=== PATIENT | male | born 1945 | race Caucasian/White ===

== ENCOUNTER 2016-12-01 13:36 | Outpatient (CLI) | payer MEDICARE ==
[2016-12-01 14:03] LABS: #Eosinphils 0.1 thou/uL (0.0-0.7); #Lymphocytes 1.5 thou/uL (1.20-3.40); #Monocytes 0.5 thou/uL (0.11-0.59); #Neutrophils 4.4 thou/uL (1.40-6.50); %Basophils 0.5 % (0.0-1.0); %Eosinophils 0.8 % (0.0-10.0); %Lymphocytes 22.9 % (21.0-51.0); %Monocytes 7.3 % (0.0-10.0); Hematocrit 45.4 % (42.0-52.0); Mean Platelet Volume 9.2 fL (7.4-10.4); Red Blood Cell (RBC) Count 4.94 mill/uL (4.70-6.10); White Blood Cell (WBC) Count 6.5 thou/uL (4.8-10.8)
[2016-12-01 14:17] LABS: Hemoglobin A1c 6.7 % (4.0-6.0)
[2016-12-01 14:19] LABS: ALT (SGPT) 16 U/L (0-55); AST (SGOT) 19 U/L (5-34); Alkaline Phosphatase 65 U/L (40-150); Anion Gap 16 mmol/L (10-20); BUN (Urea Nitrogen) 26 mg/dL (8.4-25.7); Bilirubin, Direct 0.3 mg/dL (0.1-0.3); Bilirubin, Total 0.9 mg/dL (0.2-1.2); Calc. Creatinine Clearance 0 mL/min (70-130); Calcium 9.4 mg/dL (7.8-10.44); Carbon Dioxide 22 mmol/L (23-31); Chloride 104 mmol/L (98-107); Estimated GFR-MDRD 48; LDL Cholesterol, Calculated 98 mg/dL; Protein, Total 7.1 g/dL (5.8-8.1)
== END 2016-12-01 13:37 | disposition home or self-care (01) ==
LOC: NAVSJIPCSP 13:36
PROVIDERS: ATTEND Family Medicine
DX: I10 Essential (primary) hypertension (principal)
CPT/HCPCS: 80048; 80061; 80076; 83036; 84443; 85025

== ENCOUNTER 2017-07-17 11:03 | Emergency (ER) | payer MEDICARE ==
[2017-07-17 11:41] LABS: #Basophils 0.1 thou/uL (0.0-0.2); #Eosinphils 0.1 thou/uL (0.0-0.7); #Lymphocytes 2.1 thou/uL (1.20-3.40); #Monocytes 0.9 thou/uL (0.11-0.59); #Neutrophils 6.4 thou/uL (1.40-6.50); %Basophils 0.5 % (0.0-1.0); %Eosinophils 0.6 % (0.0-10.0); %Lymphocytes 21.7 % (21.0-51.0); %Monocytes 9.6 % (0.0-10.0); %Neutrophils 67.5 % (42.0-75.0); Hemoglobin 16.6 g/dL (14.0-18.0); Mean Corpuscular HGB CONC 33.4 g/dL (32.0-36.0); Mean Corpuscular Hemoglobin 31.7 pg (27.0-31.0); Mean Corpuscular Volume 95.1 fl (80.0-94.0); Mean Platelet Volume 9.9 fL (7.4-10.4); Platelet Count 198 thou/uL (130-400); RBC Distribution Width 12.8 % (11.5-14.5); Red Blood Cell (RBC) Count 5.22 mill/uL (4.70-6.10); White Blood Cell (WBC) Count 9.5 thou/uL (4.8-10.8)
[2017-07-17 11:47] LABS: Bilirubin Negative (Negative); Blood, Urine Trace (Negative); Clarity Clear (Clear); Glucose, Urine (Dipstick) Negative (Negative); Leukocyte Negative (Negative); Nitrite Negative (Negative); Protein, Urine (Dipstick) Negative (Neg-Trace); Specific Gravity, Urine 1.015 (1.005-1.030); Urobilinogen 0.2 mg/dL (0.2-1.0); pH, Urine 6.5 (5.0-9.0)
[2017-07-17 11:54] LABS: ALT (SGPT) 13 U/L (8-55); AST (SGOT) 12 U/L (5-34); Albumin 4.6 g/dL (3.4-4.8); Alkaline Phosphatase 82 U/L (40-150); Anion Gap 15 mmol/L (10-20); BUN (Urea Nitrogen) 18 mg/dL (8.4-25.7); Calc. Creatinine Clearance 0 mL/min (70-130); Calcium 9.9 mg/dL (7.8-10.44); Carbon Dioxide 26 mmol/L (23-31); Chloride 100 mmol/L (98-107); Estimated GFR-MDRD 52; Globulin 3.2 g/dL (2.4-3.5); Glucose 123 mg/dL (83-110); Potassium 3.9 mmol/L (3.5-5.1); Protein, Total 7.8 g/dL (5.8-8.1); Sodium 137 mmol/L (136-145)
[2017-07-17 11:55] LABS: RBC/HPF 0-3 HPF (0-3); Squamous Epithelial 0-3 HPF (0-3); WBC/HPF 0-3 HPF (0-3)
--- NOTE | 2017-07-17 14:19 | RAD ---
2 VIEWS CHEST: Date: 07/17/17 COMPARISON: None. HISTORY: Right-sided pain, chest pain, back pain. FINDINGS: No pneumothorax, pleural fluid, focal consolidation, or alveolar edema. Cardiac silhouette is promin ent on the lateral view. There is multilevel mid thoracic spine degenerative change. IMPRESSION: No focal consolidation or alveolar edema. POS: [facility]
== END 2017-07-17 12:53 | disposition home or self-care (01) ==
LOC: NAV ERS 11:03
DX: R07.1 Chest pain on breathing (principal); I48.91 Unspecified atrial fibrillation; I10 Essential (primary) hypertension; Z79.82 Long term (current) use of aspirin; Z79.899 Other long term (current) drug therapy
CPT/HCPCS: 71020; 80053; 81003; 81015; 85025

== ENCOUNTER 2017-10-01 06:52 | Emergency (ER) | payer MEDICARE ==
[2017-10-01] MEDS ORDERED: Pantoprazole 40 MG VIAL ONE (07:21)
[2017-10-01] MEDS ORDERED: Mag-Al Plus 1200 MG/1200 MG/120 MG/30 ML UDCUP ONE (07:21)
[2017-10-01] MEDS ORDERED: Lidocaine Viscous Sol 2% 15 ml UD Cup ONE (07:21)
[2017-10-01] MEDS ORDERED: Ondansetron HCl/PF 4 MG/2 ML Vial ONE (07:21)
[2017-10-01 07:32] LABS: #Basophils 0.1 thou/uL (0.0-0.2); #Lymphocytes 0.7 thou/uL (1.20-3.40); #Monocytes 0.6 thou/uL (0.11-0.59); #Neutrophils 12.2 thou/uL (1.40-6.50); %Basophils 0.5 % (0.0-1.0); %Eosinophils 0.1 % (0.0-10.0); %Lymphocytes 5.2 % (21.0-51.0); %Monocytes 4.3 % (0.0-10.0); Hemoglobin 15.9 g/dL (14.0-18.0); Mean Corpuscular HGB CONC 32.5 g/dL (32.0-36.0); Mean Corpuscular Hemoglobin 29.4 pg (27.0-31.0); Mean Corpuscular Volume 90.4 fl (80.0-94.0); Mean Platelet Volume 10.3 fL (7.4-10.4); Platelet Count 250 thou/uL (130-400); RBC Distribution Width 13.5 % (11.5-14.5); Red Blood Cell (RBC) Count 5.42 mill/uL (4.70-6.10); White Blood Cell (WBC) Count 13.6 thou/uL (4.8-10.8)
[2017-10-01 07:45] LABS: ALT (SGPT) 16 U/L (8-55); AST (SGOT) 20 U/L (5-34); Albumin 4.4 g/dL (3.4-4.8); Alkaline Phosphatase 92 U/L (40-150); Anion Gap 18 mmol/L (10-20); BUN (Urea Nitrogen) 17 mg/dL (8.4-25.7); Bilirubin, Total 0.7 mg/dL (0.2-1.2); CK (CPK) 134 U/L (30-200); Calc. Creatinine Clearance 0 mL/min (70-130); Calcium 9.5 mg/dL (7.8-10.44); Carbon Dioxide 25 mmol/L (23-31); Chloride 97 mmol/L (98-107); Estimated GFR-MDRD 54; Globulin 3.4 g/dL (2.4-3.5); Glucose 210 mg/dL (83-110); Lipase 15 U/L (8-78); Potassium 3.6 mmol/L (3.5-5.1); Protein, Total 7.8 g/dL (5.8-8.1); Sodium 136 mmol/L (136-145)
[2017-10-01 07:46] LABS: CKMB 2.1 ng/mL (0-6.6); Troponin I Less than 0.010 ng/mL (< 0.028)
--- NOTE | 2017-10-01 08:27 | RAD ---
CHEST ONE VIEW: ABDOMEN TWO VIEWS: HISTORY: A 72-year-old male with abdominal pain, primarily in the epigastric region, for approximately one mon th. COMPARISON: 07/17/2017 FINDINGS: No significant acute process in the chest. In the abdomen, there is some gas and fecal material in the colon. There are two loops of small deidre l containing gas, which are upper range of normal in size and may show a small air-fluid level. Etio logy is uncertain. Possibilities include that of some intimal focal ileus or low grade partial small bowel obstruction. IMPRESSION: 1. No acute process in the chest. 2. Fecal material throughout the colon. 3. Two loops of borderline sized small bowel with air and possible minimal fluid in the left mid abd omen, nonspecific. POS: [facility]
--- NOTE | 2017-10-01 10:40 | CT ---
CT OF ABDOMEN AND PELVIS PERFORMED WITH INTRAVENOUS CONTRAST ENHANCEMENT: HISTORY: Abdominal pain, bloating, and constipation. FINDINGS: CT OF ABDOMEN PERFORMED WITH CONTRAST ENHANCEMENT: The lung bases are clear of infiltrates. A small hypodensity within the right lobe of the liver statistically most likely is a cyst. The sple en is normal in size. The pancreas is unremarkable. The gallbladder is distended. There is minimal ascites present around the liver. Right and left adrenal glands and right and left kidneys are normal in size. There is no significant periaortic or mesenteric lymphadenopathy. There is diffuse nodularity to the omentum consistent wit h omental seeding compatible with peritoneal metastasis. I do not see any definite bowel wall abnorm alities. There is some prominence and questionable wall thickening to the duodenum, but this is a ve ry variable area on CT. CT OF PELVIS PERFORMED WITH CONTRAST ENHANCEMENT: Sigmoid diverticulosis is noted. No adenopathy or mass. IMPRESSION: Findings consistent with diffuse omental seeding compatible with metastatic disease, somewhat unusual in a male. Primary considerations would be some type of GI malignancy or lymphoma. Less likely pos sibilities are entities such as mesothelioma and TB. These findings were discussed with Dr. Murrell. POS: [facility]
== END 2017-10-01 11:44 | disposition home or self-care (01) ==
LOC: NAV ERS 06:52
DX: R10.10 Upper abdominal pain, unspecified (principal); I10 Essential (primary) hypertension; I48.91 Unspecified atrial fibrillation
CPT/HCPCS: 74022; 74177; 80053; 82378; 82550; 82553; 83615; 83690; 84484; 85025; 93005; 96374; 96375; C9113; J2405

== ENCOUNTER 2018-01-12 14:29 | Emergency (ER) | payer MEDICARE ==
[2018-01-12] MEDS ORDERED: Sodium Chloride 0.9% 1,000 ML ONE (15:12)
[2018-01-12 15:48] LABS: Bilirubin Negative (Negative); Blood, Urine Negative (Negative); Clarity Clear (Clear); Glucose, Urine (Dipstick) Negative (Negative); Leukocyte Negative (Negative); Nitrite Negative (Negative); Protein, Urine (Dipstick) 30 mg/dL (Neg-Trace); Urobilinogen 0.2 mg/dL (0.2-1.0)
[2018-01-12 15:53] LABS: ALT (SGPT) 12 U/L (8-55); AST (SGOT) 16 U/L (5-34); Albumin 3.9 g/dL (3.4-4.8); Alkaline Phosphatase 96 U/L (40-150); Anion Gap 14 mmol/L (10-20); BUN (Urea Nitrogen) 20 mg/dL (8.4-25.7); Bilirubin, Total 0.4 mg/dL (0.2-1.2); CK (CPK) 29 U/L (30-200); Calc. Creatinine Clearance 0 mL/min (70-130); Calcium 9.5 mg/dL (7.8-10.44); Carbon Dioxide 29 mmol/L (23-31); Chloride 97 mmol/L (98-107); Estimated GFR-MDRD 49; Globulin 2.9 g/dL (2.4-3.5); Glucose 134 mg/dL (83-110); Lipase 12 U/L (8-78); Potassium 3.9 mmol/L (3.5-5.1); Protein, Total 6.8 g/dL (5.8-8.1); Sodium 136 mmol/L (136-145)
[2018-01-12 15:54] LABS: CKMB 0.8 ng/mL (0-6.6); Troponin I Less than 0.010 ng/mL (< 0.028)
[2018-01-12 15:55] LABS: #Lymphocytes 1.5 thou/uL (1.20-3.40); #Monocytes 0.6 thou/uL (0.11-0.59); %Basophils 0.7 % (0.0-1.0); %Eosinophils 0.5 % (0.0-10.0); %Lymphocytes 29.9 % (21.0-51.0); %Monocytes 10.9 % (0.0-10.0); Hemoglobin 12.1 g/dL (14.0-18.0); Mean Corpuscular Hemoglobin 28.7 pg (27.0-31.0); Mean Corpuscular Volume 84.5 fl (80.0-94.0); Mean Platelet Volume 9.3 fL (7.4-10.4); Platelet Count 174 thou/uL (130-400); RBC Distribution Width 15.2 % (11.5-14.5); Red Blood Cell (RBC) Count 4.21 mill/uL (4.70-6.10); White Blood Cell (WBC) Count 5.2 thou/uL (4.8-10.8)
[2018-01-12 15:57] LABS: Squamous Epithelial 0-3 HPF (0-3)
--- NOTE | 2018-01-12 16:26 | RAD ---
2 VIEWS ABDOMEN AND UPRIGHT VIEW OF CHEST: Date: 01/12/18 COMPARISON: 10/01/17. HISTORY: Diarrhea and constipation. Nausea and vomiting. Abdominal bloating. FINDINGS: Supine and upright views of the abdomen show a nonspecific, nonobstructed bowel gas pattern. Air is s een throughout the colon. No free air or air fluid levels are seen on upright examination. Cholecyste ctomy clips are seen. The cardiomediastinal silhouette is enlarged, but stable in size. There is no evidence of consolidati on, mass, or pleural effusion. IMPRESSION: Nonobstructive bowel gas pattern. POS: [facility]
== END 2018-01-12 17:09 | disposition home or self-care (01) ==
LOC: NAV ERS 14:29
DX: E86.0 Dehydration (principal); R10.10 Upper abdominal pain, unspecified; I48.91 Unspecified atrial fibrillation; M10.9 Gout, unspecified; Z79.899 Other long term (current) drug therapy
CPT/HCPCS: 74022; 80053; 81003; 81015; 82550; 82553; 83690; 84484; 85025; 93005; 96360; 96361; J7050

== ENCOUNTER 2018-02-04 17:15 | Emergency (ER) | payer MEDICARE ==
[~2018-02-04 17:15] MED LIST: Iopamidol 370 76% 100 ML VIAL ONE
[2018-02-04] MEDS ORDERED: Ondansetron HCl/PF 4 MG/2 ML Vial ONE (17:27)
[2018-02-04] MEDS ORDERED: Sodium Chloride 0.9% 1,000 ML ONE (17:28)
[2018-02-04 17:54] LABS: #Lymphocytes 0.8 thou/uL (1.20-3.40); #Monocytes 0.1 thou/uL (0.11-0.59); #Neutrophils 2.4 thou/uL (1.40-6.50); %Basophils 0.6 % (0.0-1.0); %Eosinophils 0.7 % (0.0-10.0); %Lymphocytes 23.7 % (21.0-51.0); %Monocytes 1.5 % (0.0-10.0); %Neutrophils 73.5 % (42.0-75.0); Hemoglobin 11.9 g/dL (14.0-18.0); Mean Corpuscular HGB CONC 33.8 g/dL (32.0-36.0); Mean Corpuscular Hemoglobin 29.2 pg (27.0-31.0); Mean Corpuscular Volume 86.4 fl (80.0-94.0); Mean Platelet Volume 8.8 fL (7.4-10.4); Platelet Count 218 thou/uL (130-400); RBC Distribution Width 17.2 % (11.5-14.5); Red Blood Cell (RBC) Count 4.09 mill/uL (4.70-6.10); White Blood Cell (WBC) Count 3.3 thou/uL (4.8-10.8)
[2018-02-04 18:01] LABS: ALT (SGPT) 9 U/L (8-55); AST (SGOT) 13 U/L (5-34); Albumin 3.9 g/dL (3.4-4.8); Alkaline Phosphatase 75 U/L (40-150); Anion Gap 15 mmol/L (10-20); BUN (Urea Nitrogen) 35 mg/dL (8.4-25.7); Bilirubin, Total 1.1 mg/dL (0.2-1.2); Calc. Creatinine Clearance 0 mL/min (70-130); Calcium 8.8 mg/dL (7.8-10.44); Carbon Dioxide 25 mmol/L (23-31); Chloride 102 mmol/L (98-107); Estimated GFR-MDRD 63; Globulin 2.7 g/dL (2.4-3.5); Glucose 105 mg/dL (83-110); Lipase 32 U/L (8-78); Potassium 3.9 mmol/L (3.5-5.1); Protein, Total 6.6 g/dL (5.8-8.1); Sodium 138 mmol/L (136-145)
[2018-02-04 18:02] LABS: Troponin I Less than 0.010 ng/mL (< 0.028)
[2018-02-04 18:59] LABS: Bilirubin Negative (Negative); Blood, Urine Negative (Negative); Clarity Clear (Clear); Glucose, Urine (Dipstick) Negative (Negative); Leukocyte Negative (Negative); Nitrite Negative (Negative); Protein, Urine (Dipstick) 30 mg/dL (Neg-Trace); Urobilinogen 0.2 mg/dL (0.2-1.0)
[2018-02-04 19:18] LABS: Bacteria/HPF None Seen HPF (None Seen); RBC/HPF 0-3 HPF (0-3); Squamous Epithelial 0-3 HPF (0-3); WBC/HPF None Seen HPF (0-3)
--- NOTE | 2018-02-04 19:34 | CT ---
CT ABDOMEN AND PELVIS WITH CONTRAST 02/04/18 Multiple axial tomograms obtained through the abdomen and pelvis with IV enhancement. Oral contrast i s not given. INDICATIONS: Patient with gallbladder malignancy. Post cholecystectomy. Now on chemo. Abdominal pain with vomiting and diarrhea. Comparison made with abdominal CT of 10/01/17. FINDINGS: Images through the lung bases show a small right pleural effusion. Small cyst in the right lobe of th e liver is stable. The liver and spleen otherwise unremarkable. There is mild to moderate ascites wit h fluid around the liver and spleen margins. Patient is post cholecystectomy. Omental edema and fluid . The omental and peritoneal implants noted on the prior exam are again seen anteriorly. These multip le tiny nodular implants are similar in appearance. Mild right hydronephrosis is seen today. There is mild columning of the right ureter. The urinary drake dder is contracted and cannot be adequately evaluated. Etiology for the right hydronephrosis is not a pparent on this study. There is an abrupt change in the caliber of the distal right ureter. Omental i mplant, possibly may be producing this obstruction. I cannot exclude other filling defects. No defini te calculus. Recommend urologic consultation and consider retrograde study. Kidneys otherwise unremarkable. Small bowel loops are normal caliber. Diverticulosis of the sigmoid colon again noted. Aorta is tarah l caliber. IMPRESSION: 1. Small right pleural effusion. 2. Moderate ascites. 3. Omental and peritoneal implants anteriorly consistent with diffuse metastasis again noted. 4. Mild right hydronephrosis. There is abrupt change in caliber of the distal right ureter. The etiology is not apparent on this exam. Recommend urologic consultation and consider retrograde study. POS: [facility]
[2018-02-04] MEDS ORDERED: Metoclopramide HCl 10 MG/2 ML VIAL ONE (19:40)
== END 2018-02-04 21:00 | disposition home or self-care (01) ==
LOC: NAV ERS 17:15
DX: R11.2 Nausea with vomiting, unspecified (principal); T45.1X5A Adverse effect of antineoplastic and immunosuppressive drugs, initial encounter; E11.9 Type 2 diabetes mellitus without complications; I48.91 Unspecified atrial fibrillation; I10 Essential (primary) hypertension; M10.9 Gout, unspecified; Z79.82 Long term (current) use of aspirin; Z79.01 Long term (current) use of anticoagulants; Z79.899 Other long term (current) drug therapy
CPT/HCPCS: 74177; 80053; 81003; 81015; 82553; 83605; 83690; 84484; 85025; 93005; 96361; 96374; 96375; J2405; J2765; J7050

== ENCOUNTER 2018-06-12 06:20 | Emergency (ER) | payer MEDICARE ==
--- NOTE | 2018-06-12 08:05 | RAD ---
CHEST PA AND LATERAL: HISTORY: A 73-year-old male with a history of cough for 3 days, congestion, wheezing. FINDINGS: Heart size is upper range of normal. Right subclavian catheter and injection port. There is some bl unting in the costophrenic angles and some posterior pleural opacity changes, particularly in the rig ht lung, evidence for right pleural effusion. No significant confluent pneumonia. IMPRESSION: Cardiomegaly with mild vascular congestion. Blunting of the costophrenic angles seen on the lateral view posteriorly, evidence for a pleural effusion , particularly on the right side. Stable appearanc e from the 06/05/18 study. No significant new process. POS: [facility]
== END 2018-06-12 08:15 | disposition home or self-care (01) ==
LOC: NAV ERS 06:20
DX: J20.9 Acute bronchitis, unspecified (principal); E11.9 Type 2 diabetes mellitus without complications; I48.91 Unspecified atrial fibrillation; I10 Essential (primary) hypertension; M10.9 Gout, unspecified; Z79.899 Other long term (current) drug therapy; Z79.82 Long term (current) use of aspirin
CPT/HCPCS: 71046; 94640; J7620